=== PATIENT | female | born 1970 | race Two or more races ===

== ENCOUNTER 2016-08-30 20:18 | Emergency (ER) | payer MEDICAID, OTHER ==
[~2016-08-30] VITALS: Ht 152.4 cm; Wt 85.7 kg
[2016-08-30 21:21] LABS: Basophils # (auto) 0 uL; Basophils % (auto) 0.5 % (0.0-2.0); DEFINITIVE VIEW TRANSMISSION; Eosinophils # (auto) 0.4 uL; Eosinophils % (auto) 3.8 % (0.0-7.0); Hematocrit 40.6 % (36.0-46.0); Hemoglobin 13.2 g/dL (12.2-16.2); Lymphocytes # (auto) 3.3 uL; Lymphocytes % (auto) 34.8 % (10.0-50.0); Mean Corpuscular Hemoglobin 26.7 pg (28.0-32.0); Mean Corpuscular Hgb Conc. 32.5 g/dL (32.0-36.0); Mean Corpuscular Volume 82.3 fL (80.0-100.0); Mean Platelet Volume 8.3 fL (7.4-10.4); Monocytes # (auto) 0.6 uL; Monocytes % (auto) 6.3 % (0.0-12.0); Neutrophils # (auto) 5.2 uL; Neutrophils % (auto) 54.6 % (37.0-80.0); Platelet Count (auto) 372 10^3/uL (140-450); Red Cell Distribution Width 14.3 % (11.6-16.0); White Blood Cell 9.4 10^3/uL (4.4-10.8)
[2016-08-30 21:35] LABS: INR 0.97 (0.9-1.15)
[2016-08-30 21:37] LABS: Albumin 3.4 g/dL (3.4-5.0); BUN/Creatinine Ratio 18.5; Calcium 8.4 mg/dL (8.5-10.1); Potassium 3.4 mmol/L (3.5-5.1)
[2016-08-30 21:39] LABS: Bilirubin, Total 0.1 mg/dL (0.2-1.0); Total Protein 7.4 g/dL (6.4-8.2)
[2016-08-30 21:46] LABS: Temperature: 22.7 C (20.0-25.0)
[2016-08-31 01:16] VITALS: BP 116/62
[2016-08-31] MEDS ORDERED: IBUPROFEN 600 MG TAB PO ONE (02:45)
== END 2016-08-31 02:51 | disposition home or self-care (01) ==
LOC: ER 20:25
DX: J18.9 Pneumonia, unspecified organism (principal); N64.4 Mastodynia; N92.4 Excessive bleeding in the premenopausal period
CPT/HCPCS: 36415; 71010; 80053; 81002; 83880; 84484; 85025; 85610; 85730; 93005

== ENCOUNTER 2016-09-02 16:22 | Emergency (ER) | payer MEDICARE, MEDICAID ==
[~2016-09-02] VITALS: Ht 144.8 cm; Wt 90.4 kg
[2016-09-02 16:30] VITALS: BP 116/56
[2016-09-02] MEDS ORDERED: LACTULOSE 20Gm/30ML SOLN PO ONE (21:00)
== END 2016-09-02 21:08 | disposition home or self-care (01) ==
LOC: ER 16:27
DX: K59.00 Constipation, unspecified (principal); N95.1 Menopausal and female climacteric states
CPT/HCPCS: 74022; 81002; 93005

== ENCOUNTER 2016-09-12 13:12 | Emergency (ER) | payer MEDICARE, MEDICAID ==
[~2016-09-12] VITALS: Ht 149.9 cm; Wt 86.2 kg
[2016-09-12 13:33] VITALS: BP 128/75
== END 2016-09-12 15:18 | disposition home or self-care (01) ==
LOC: ER 13:15
DX: S39.012A Strain of muscle, fascia and tendon of lower back, initial encounter (principal); G89.29 Other chronic pain; W19.XXXA Unspecified fall, initial encounter; Y93.89 Activity, other specified; Y99.8 Other external cause status; Y92.89 Other specified places as the place of occurrence of the external cause